=== PATIENT | female | born 1970 | race Hispanic/Latino ===

== ENCOUNTER → 2024-02-15 | Day surgery (SDC) | payer MEDICARE ==
[~2024-02-15] MED LIST: METHIMAZOLE5 MG; VITAMIN B-121000 MCG PO; VITAMIN D
[2024-02-15] MEDS: LACTATED RINGER'S 1,000 ML ONE (10:47)
[2024-02-15 13:30] VITALS: BP 104/81; PULSE 82; RESP 16; O2SAT 96
== END | disposition home or self-care (01) ==
LOC: OR 10:01
PROVIDERS: ATTEND Internal Medicine Gastroenterology
DX: R19.5 Other fecal abnormalities (principal); D12.3 Benign neoplasm of transverse colon; K64.8 Other hemorrhoids; Z71.3 Dietary counseling and surveillance; Q90.9 Down syndrome, unspecified; E03.9 Hypothyroidism, unspecified; Z01.810 Encounter for preprocedural cardiovascular examination; Z79.899 Other long term (current) drug therapy; Z68.26 Body mass index [BMI] 26.0-26.9, adult
CPT/HCPCS: 45380; 45385; 93005; J7121; 45378